=== PATIENT | female | born 1995 | race Caucasian/White ===

== ENCOUNTER 2018-03-16 16:48 | Emergency (ER) | payer OTHER ==
[2018-03-16 17:42] LABS: Absolute Lymphocytes (CBC) 1.5 K/uL (0.7-4.9); Absolute Monocytes 0.8 K/uL (0.1-1.3); Absolute Neutrophil 8.6 K/uL (1.8-8.0); Basophils % 0.2 % (0-1.3); Eosinophils % 0.5 % (0-4.4); Hematocrit 34.4 % (36.0-45.0); Lymphocytes % 13.7 % (15.3-44.8); MCH 33.9 pg (27.0-35.0); MCV 95.9 fL (80-100); MPV 8.5 fL (7.6-11.3); RBC Red Blood Cell Count 3.59 M/uL (3.86-4.86)
[2018-03-16 17:46] LABS: Protime INR 1.03
[2018-03-16 18:00] LABS: ALT/SGPT 22 U/L (12-78); AST/SGOT 20 U/L (15-37); Alkaline Phosphatase 103 U/L (45-117); BUN Blood Urea Nitrogen 6 mg/dL (7-18); Bicarbonate 25 mmol/L (21-32); Bilirubin Total 0.3 mg/dL (0.2-1.0); Glucose Level 98 mg/dL (74-106); Potassium 3.6 mmol/L (3.5-5.1); Protein, Total 6.3 g/dL (6.4-8.2); Sodium Level 138 mmol/L (136-145)
--- NOTE | 2018-03-16 18:05 | EDPHYS ---
Physician Documentation [facility] Name: Temitope Dillon Age: 22 yrs Sex: Female : 1995 Arrival Date: 03/16/2018 Time: 16:50 Bed 23 Private MD: ED Physician Doug Sanchez HPI: 03/16 17:23 This 22 yrs old Female presents to ER via Ambulatory with complaints of kdr Numbness Of Face. 17:23 The patient's problem is reported as paresthesias, in right side of face. Onset: The kdr symptoms/episode began/occurred suddenly, at 15:00. Duration: This was a single incident, The episode is continuous. Context: the episode(s) was witnessed, by family, symptoms became apparent at 15:00. occurred at home, occurred while the patient was at rest. The symptoms are alleviated by nothing. The symptoms are aggravated by nothing. Associated signs and symptoms: The patient has no apparent associated signs or symptoms. Severity of symptoms: At their worst the symptoms were very mild in the emergency department the symptoms are unchanged. Patient's baseline: Neuro: alert and fully oriented, Motor: no deficits, Ambulation: walks without assistance, Speech: normal, The patient has a previous history of 32 weeks . The patient has not experienced similar symptoms in the past. 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 - Social history:: Smoking status: Patient/guardian denies using tobacco. - Ebola Screening: : No symptoms or risks identified at this time. ROS: 18:04 Constitutional: Negative for fever, chills, and weight loss, Eyes: Negative for injury, kdr pain, redness, and discharge, ENT: Negative for injury, pain, and discharge, Neck: Negative for injury, pain, and swelling, Cardiovascular: Negative for chest pain, palpitations, and edema, Respiratory: Negative for shortness of breath, cough, wheezing, and pleuritic chest pain, Abdomen/GI: Negative for abdominal pain, nausea, vomiting, diarrhea, and constipation, Back: Negative for injury and pain, : Negative for injury, bleeding, discharge, and swelling, MS/Extremity: Negative for injury and deformity, Skin: Negative for injury, rash, and discoloration, Psych: Negative for depression, anxiety, suicide ideation, homicidal ideation, and hallucinations, Allergy/Immunology: Negative for hives, rash, and allergies, Endocrine: Negative for neck swelling, polydipsia, polyuria, polyphagia, and marked weight changes, Hematologic/Lymphatic: Negative for swollen nodes, abnormal bleeding, and unusual bruising. 18:04 Neuro: Positive for numbness, tingling, of the right zygomatic area and right cheek. Exam: 18:04 Head/Face: Normocephalic, atraumatic. kdr 18:04 Neuro: Orientation: is normal, Mentation: is normal, Memory: is normal, Cranial nerves: normal except V5 - facial nerve with subjective numbness - no objective findings of asymmetric sensation, Cerebellar function: Motor: Sensation: pin prick testing is normal. Vital Signs: 17:03 BP 121 / 75; Pulse 81; Resp 16; Temp 97.3; Pulse Ox 98% on R/A; Weight 61.23 kg; Height la1 5 ft. 4 in. (162.56 cm); 18:30 BP 124 / 76; Pulse 80; Resp 16; Pulse Ox 99% on R/A; kr2 17:03 Body Mass Index 23.17 (61.23 kg, 162.56 cm) la1 NIH Stroke Scale Scores: 17:04 NIHSS Score: 0 la1 18:08 NIHSS Score: 0 kdr MDM: 18:04 Patient medically screened. kdr 18:04 Data reviewed: vital signs, nurses notes, lab test result(s). Counseling: I had a kdr detailed discussion with the patient and/or guardian regarding: the historical points, exam findings, and any diagnostic results supporting the discharge/admit diagnosis, lab results, the need to transfer to another facility, for higher level of care, [facility] does not immediately have the required specialist. 18:08 ED course: tPA not indicated due to stoke scale of 0. kdr 11 17:15 Order name: CBC with Diff la1 03/16 17:15 Order name: CMP la1 03/16 17:15 Order name: PT-INR la1 03/16 17:15 Order name: SL; Complete Time: 18:34 la1 Administered Medications: No medications were administered Point of Care Testing: Blood Glucose: 17:06 Blood Glucose: 109 mg/dL; la1 Ranges: Critical Glucose Levels:Adult <50 mg/dl or >400 mg/dl <40 mg/dl or >180 mg/dl Disposition: 03/16/18 18:04 Transfer ordered to [facility]. Diagnosis is Paresthesia of skin - Right lower face. - Reason for transfer: Higher level of care. - Accepting physician is Dr. Hernandez. - Condition is Fair. - Problem is new. - Symptoms are unchanged. NIH Stroke Scale - NIH Stroke Score Date: 03/16/2018 Time: 17:04 Total Score = 0 1a. Level of Consciousness (LOC) - 0(Alert) 1b. Level of Consciousness (LOC) (Year \T\ Age) - 0(Both) 1c. LOC Commands (Open \T\ Closes Eyes/Measurer Machine) - 0(Both) 2. Best Gaze (Lateral Gaze Paresis) - 0(Normal) 3. Visual Field Loss - 0(No visual loss) 4. Facial Palsy - 0(Normal) 5a. Left Arm: Motor (10-second hold) - 0(No drift) 5b. Right Arm: Motor (10-second hold) - 0(No drift) 6a. Left Leg: Motor (5-second hold - always test supine) - 0(No drift) 6b. Right Leg: Motor (5-second hold - always test supine) - 0(No drift) 7. Limb Ataxia (finger/nose \T\ heel/ball - test with eyes open) - 0(Absent) 8. Sensory Loss (pinprick arms/legs/face) - 0(Normal) 9. Best Language: Aphasia (description/naming/reading) - 0(No aphasia) 10. Dysarthria (speech clarity - read or repeat words) - 0(Normal) 11. Extinction and Inattention (visual/tactile/auditory/spatial/personal) - 0(No abnormality) Initials: la1 NIH Stroke Scale - NIH Stroke Score Date: 03/16/2018 Time: 18:08 Total Score = 0 1a. Level of Consciousness (LOC) - 0(Alert) 1b. Level of Consciousness (LOC) (Year \T\ Age) - 0(Both) 1c. LOC Commands (Open \T\ Closes Eyes/Measurer Machine) - 0(Both) 2. Best Gaze (Lateral Gaze Paresis) - 0(Normal) 3. Visual Field Loss - 0(No visual loss) 4. Facial Palsy - 0(Normal) 5a. Left Arm: Motor (10-second hold) - 0(No drift) 5b. Right Arm: Motor (10-second hold) - 0(No drift) 6a. Left Leg: Motor (5-second hold - always test supine) - 0(No drift) 6b. Right Leg: Motor (5-second hold - always test supine) - 0(No drift) 7. Limb Ataxia (finger/nose \T\ heel/ball - test with eyes open) - 0(Absent) 8. Sensory Loss (pinprick arms/legs/face) - 0(Normal) 9. Best Language: Aphasia (description/naming/reading) - 0(No aphasia) 10. Dysarthria (speech clarity - read or repeat words) - 0(Normal) 11. Extinction and Inattention (visual/tactile/auditory/spatial/personal) - 0(No abnormality) Initials: kdr Signatures: Dispatcher [employer] EDMS Doug Sanchez MD MD kdr Donn Au RN RN la1 Ivette Lopez RN RN kr2 Corrections: (The following items were deleted from the chart) 18:45 18:04 03/16/2018 18:04 Transfer ordered to [address] Diagnosis is Paresthesia of skin - Right lower face. Reason for transfer: Higher level of care. Accepting physician is Dr. Hernandez. Condition is Fair. Problem is new. Symptoms are unchanged. kdr
--- NOTE | 2018-03-16 18:05 | ER ---
Nurse's Notes [facility] Name: Temitope Dillon Age: 22 yrs Sex: Female : 1995 Arrival Date: 03/16/2018 Time: 16:50 Bed 23 Private MD: Diagnosis: Paresthesia of skin-Right lower face Presentation: 03/16 17:03 Presenting complaint: Patient states: right sided facial numbness without any other la1 neurological deficits. Transition of care: patient was not received from another setting of care. Onset of symptoms was March 16, 2018. Risk Assessment: Do you want to hurt yourself or someone else? Patient reports no desire to harm self or others. Initial Sepsis Screen: Does the patient meet any 2 criteria? No. Patient's initial sepsis screen is negative. Does the patient have a suspected source of infection? No. Patient's initial sepsis screen is negative. Care prior to arrival: None. 17:03 Method Of Arrival: Ambulatory la1 17:03 Acuity: ARCENIO 2 la1 Triage Assessment: 17:10 General: Appears in no apparent distress. comfortable, well groomed, well developed, kr2 well nourished, Behavior is calm, cooperative, appropriate for age. 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 - Social history:: Smoking status: Patient/guardian denies using tobacco. - Ebola Screening: : No symptoms or risks identified at this time. Screenin:04 Patient has been NPO before screening. The patient is alert, able to follow commands. la1 The patient does not exhibit slurred or garbled speech The patient is not exhibiting difficulty speaking. The patient does not exhibit difficulty understanding words. The patient is able to swallow own secretions with no drooling or need for suction. Patient tolerated one teaspoon of water. No drooling, immediate coughing, gurgling, or clearing of the throat was noted. The patient tolerated 90mL of water. No drooling, immediate coughing, gurgling, or clearing of the throat was noted. The patient passed the bedside swallow screening. Oral medications may be given as ordered. Contact Physician for further diet orders. Provider notified of bedside swallow screening results: Doug Sanchez MD. 17:10 Abuse screen: Denies threats or abuse. Denies injuries from another. Nutritional kr2 screening: No deficits noted. Tuberculosis screening: No symptoms or risk factors identified. Fall Risk None identified. Assessment: 17:05 Reassessment: CT head delayed due to consult with neurology regarding . la1 17:15 General: Appears in no apparent distress. comfortable, well groomed, well developed, kr2 well nourished, Behavior is calm, cooperative, appropriate for age. Pain: Denies pain. Neuro: Level of Consciousness is awake, alert, obeys commands, Oriented to person, place, time, situation, Appropriate for age Boiler Shop Supervisor are equal bilaterally Moves all extremities. Gait is steady, Speech is normal, Facial symmetry appears normal, Pupils are PERRLA, Patient reports numbness to right side of face. Cardiovascular: Capillary refill < 3 seconds in bilateral fingers Patient's skin is warm and dry. Respiratory: Airway is patent Respiratory effort is even, unlabored, Respiratory pattern is regular, symmetrical. GI: Abdomen is flat, non-distended. : Denies burning with urination. EENT: Nares are clear bilaterally Oral mucosa is moist. Derm: Skin is intact, is healthy with good turgor, Skin is pink, warm \T\ dry. Musculoskeletal: Circulation, motion, and sensation intact. 18:30 Reassessment: Patient appears in no apparent distress at this time. Patient and/or kr2 family updated on plan of care and expected duration. Pain level reassessed. Patient is alert, oriented x 3, equal unlabored respirations, skin warm/dry/pink. Patient denies pain at this time. Vital Signs: 17:03 BP 121 / 75; Pulse 81; Resp 16; Temp 97.3; Pulse Ox 98% on R/A; Weight 61.23 kg; Height la1 5 ft. 4 in. (162.56 cm); 18:30 BP 124 / 76; Pulse 80; Resp 16; Pulse Ox 99% on R/A; kr2 17:03 Body Mass Index 23.17 (61.23 kg, 162.56 cm) la1 NIH Stroke Scale Scores: 17:04 NIHSS Score: 0 la1 18:08 NIHSS Score: 0 kdr ED Course: 16:50 Patient arrived in ED. as 17:03 Triage completed. la1 17:03 Arm band placed on right wrist. la1 17:05 Patient has correct armband on for positive identification. Bed in low position. Call kr2 light in reach. Side rails up X 1. Adult w/ patient. Pulse ox on. NIBP on. Door closed. Warm blanket given. Head of bed elevated. 17:08 Doug Sanchez MD is Attending Physician. kdr 17:20 Initial lab(s) drawn, by me, sent to lab. jp3 17:45 PT-INR Sent. jp3 17:45 CMP Sent. jp3 18:30 Inserted saline lock: 22 gauge in left antecubital area, using aseptic technique. jp3 18:40 No provider procedures requiring assistance completed. Patient transferred, IV remains kr2 in place. 18:45 Ivette Lopez, RN is Primary Nurse. kr2 Administered Medications: No medications were administered Point of Care Testing: Blood Glucose: 17:06 Blood Glucose: 109 mg/dL; la1 Ranges: Outcome: 18:04 ER care complete, transfer ordered by . kdr 18:40 Transferred by ground EMS Transfer form completed. kr2 18:40 Condition: stable 18:40 Instructed on the need for transfer, Demonstrated understanding of instructions. 18:45 Patient left the ED. kr2 NIH Stroke Scale - NIH Stroke Score Date: 03/16/2018 Time: 17:04 Total Score = 0 1a. Level of Consciousness (LOC) - 0(Alert) 1b. Level of Consciousness (LOC) (Year \T\ Age) - 0(Both) 1c. LOC Commands (Open \T\ Closes Eyes/Waste Water Worker) - 0(Both) 2. Best Gaze (Lateral Gaze Paresis) - 0(Normal) 3. Visual Field Loss - 0(No visual loss) 4. Facial Palsy - 0(Normal) 5a. Left Arm: Motor (10-second hold) - 0(No drift) 5b. Right Arm: Motor (10-second hold) - 0(No drift) 6a. Left Leg: Motor (5-second hold - always test supine) - 0(No drift) 6b. Right Leg: Motor (5-second hold - always test supine) - 0(No drift) 7. Limb Ataxia (finger/nose \T\ heel/ball - test with eyes open) - 0(Absent) 8. Sensory Loss (pinprick arms/legs/face) - 0(Normal) 9. Best Language: Aphasia (description/naming/reading) - 0(No aphasia) 10. Dysarthria (speech clarity - read or repeat words) - 0(Normal) 11. Extinction and Inattention (visual/tactile/auditory/spatial/personal) - 0(No abnormality) Initials: la1 NIH Stroke Scale - NIH Stroke Score Date: 03/16/2018 Time: 18:08 Total Score = 0 1a. Level of Consciousness (LOC) - 0(Alert) 1b. Level of Consciousness (LOC) (Year \T\ Age) - 0(Both) 1c. LOC Commands (Open \T\ Closes Eyes/Waste Water Worker) - 0(Both) 2. Best Gaze (Lateral Gaze Paresis) - 0(Normal) 3. Visual Field Loss - 0(No visual loss) 4. Facial Palsy - 0(Normal) 5a. Left Arm: Motor (10-second hold) - 0(No drift) 5b. Right Arm: Motor (10-second hold) - 0(No drift) 6a. Left Leg: Motor (5-second hold - always test supine) - 0(No drift) 6b. Right Leg: Motor (5-second hold - always test supine) - 0(No drift) 7. Limb Ataxia (finger/nose \T\ heel/ball - test with eyes open) - 0(Absent) 8. Sensory Loss (pinprick arms/legs/face) - 0(Normal) 9. Best Language: Aphasia (description/naming/reading) - 0(No aphasia) 10. Dysarthria (speech clarity - read or repeat words) - 0(Normal) 11. Extinction and Inattention (visual/tactile/auditory/spatial/personal) - 0(No abnormality) Initials: kdr Signatures: Doug Sanchez MD MD kdr Harper Warner Lee, RN RN la1 Ivette Lopez RN RN kr2 Blair Ferrara jp3 Corrections: (The following items were deleted from the chart) 03/17 00:41 03/16 17:15 Neuro: Level of Consciousness is awake, alert, obeys commands, kr2 Oriented to person, place, time, situation, Appropriate for age Boiler Shop Supervisor are equal bilaterally Moves all extremities. Gait is steady, Speech is normal, Facial symmetry appears normal, Pupils are PERRLA, Patient reports numbness to left side of face. kr2
== END 2018-03-16 18:45 | disposition short-term general hospital (02) ==
LOC: ER 16:48
DX: R20.2 Paresthesia of skin (principal); Z3A.32 32 weeks gestation of pregnancy
CPT/HCPCS: 36415; 80053; 82962; 85025; 85610; 99285

== ENCOUNTER 2018-04-26 06:21 | Inpatient (IN) | payer OTHER ==
--- NOTE | 2018-04-25 21:35 | PREOPHP ---
Date of Admission: 04/26/2018 History Of Present Illness: Ms. Dillon is a 22-year-old female, 1, para 0 , now at 38 weeks' gestation. She has been followed by me during this without significant complications other than Rh negative blood type. She presents today with 2+ lower extremity edema wi th blood pressures in 136/90+ range. Because of this, she will be admitted for induction of labor se condary to a near term , favorable cervix, with mild -induced hypertension. I feel she has nothing to be gained by continued observation at this point in . Past Medical History: Please see record. Family History: Please see record. Review of Systems: She reports no recent cough, colds, fever, or chills. No recent vomiting. She denies any breast lum ps or knots. Baby has been active. She denies any vaginal bleeding or spotting or urine symptoms. She has had headaches. She has had some nausea. Physical Examination: General: Reveals pleasant female, in no apparent distress. Neck: Supple without adenopathy or thyromegaly. Lungs: Clear. Cardiac: Regular rate and rhythm without murmurs. Breasts: Not examined. Abdomen: Estimated weight of 6+ pounds. Pelvic: Cervix 1 cm dilated, 50% effaced, mid position, vertex, and -2 station. Extremities: 2+ lower extremity edema with normal reflexes in the lower extremity. Impression: Thirty-eight week ; -induced hypertension, mild, with edema and hypert ension. Plan: The patient will be admitted for induction of labor. She has signed operative permit in my pr henrik. YFN/MODL Voice ID: [id number]
[~2018-04-26 06:21] MED LIST: BUTORPHANOL 1 MG/ML INJ IV PRN; CARBOPROST TROME 250 MCG/ML IM PRN; METHYLERGONOVINE 0.2MG/ML AMP IM PRN; PROMETHAZINE 25 MG/ML VIAL IV PRN; Ringers Lactate 1,000 ML IV PRN
[2018-04-26 06:48] LABS: RPR Titer ND
[2018-04-26 06:51] LABS: Urine Appearance CLOUDY; Urine Bilirubin NEGATIVE (NEG); Urine Blood NEGATIVE (NEG); Urine Color YELLOW; Urine Glucose NEGATIVE (NEG); Urine Protein TRACE (NEG); Urine Specific Gravity 1.015 (1.005-1.030); Urine Urobilinogen 0.2 mg/dL (0.2-1.0)
[2018-04-26 06:54] LABS: Absolute Monocytes 0.6 K/uL (0.1-1.3); Absolute Neutrophil 7.1 K/uL (1.8-8.0); Basophils % 0.3 % (0-1.3); Eosinophils % 0.5 % (0-4.4); Hematocrit 37.6 % (36.0-45.0); Lymphocytes % 20.1 % (15.3-44.8); MCH 34.4 pg (27.0-35.0); MCV 96.6 fL (80-100); MPV 10.2 fL (7.6-11.3); Monocytes % 6.2 % (3.3-12.3); RBC Red Blood Cell Count 3.89 M/uL (3.86-4.86)
[2018-04-26 06:56] LABS: Urine Microscopic Reflex ORDER UMIC
[2018-04-26] MEDS ORDERED: OXYTOCIN/LR 20 UNIT/1,000 ML BAG IV SCH (07:00)
[2018-04-26] MEDS ORDERED: Ringers Lactate 1,000 ML IV SCH (07:00)
[2018-04-26 07:03] LABS: Urine Bacteria <20 /HPF (<20); Urine RBC <5 /HPF (NONE SEEN)
[2018-04-26 07:04] LABS: Urine Culture Reflex Order NOT NEEDED
[2018-04-26 07:10] VITALS: BMI 26.4
--- NOTE | 2018-04-26 07:24 | P.PN ---
Date of Service: 04/26/18 FSE applied, cx 1-1+cm, 50% mid, vtx, minus 1-minus2 station. Plans discussed.
[2018-04-26] MEDS ORDERED: ROPIVACAINE HCL 100 ML IV PRN (11:16)
[2018-04-26] MEDS ORDERED: ROPIVACAINE HCL 0.2% 20ML AMP IV ONE (11:18)
[2018-04-26] MEDS ORDERED: FENTANYL CITR 100 MCG/2 ML ONE ×4 (12:13→21:22)
[2018-04-26] MEDS ORDERED: BUPIVACAINE 0.25% PF 30 ML VIAL ONE ×2 (12:13→17:40)
[2018-04-26] MEDS ORDERED: NA CIT/CITRIC AC 30 ML ORAL UDC PO ONE ×2 (19:15→20:26)
[2018-04-26] MEDS ORDERED: NA CIT/CITRIC AC 30 ML ORAL UDC ONE (19:26)
[2018-04-26] MEDS ORDERED: METOCLOPRAMIDE 10 MG/2mL INJ IV SCH (21:00)
[2018-04-26] MEDS ORDERED: CARBOPROST TROME 250 MCG/ML IM ONE (21:14)
[2018-04-26] MEDS ORDERED: ROPIVACAINE HCL 100 ML IV ONE (21:37)
[2018-04-26] MEDS ORDERED: ONDANSETRON 4 MG (ODT) TAB PO PRN (23:25)
[2018-04-26] MEDS ORDERED: Oxycodone HCl/Acetaminophen 1 TAB TAB PO PRN (23:25)
[2018-04-26] MEDS ORDERED: Rho(D) IG (HUMAN) 300 MCG SYR IM PRN (23:25)
[2018-04-26] MEDS ORDERED: CARBOPROST TROME 250 MCG/ML IM PRN (23:25)
--- NOTE | 2018-04-26 23:27 | P.BOP ---
Preoperative diagnosis: 38 wk iUP, PIH Postoperative diagnosis: Same, delivery viable male Primary procedure: Low outlet forceps, right midline with repair Estimated blood loss: 300ml Anesthesia: epidural Complications: None Transferred to: Other (273) Condition: Good
[2018-04-26] MEDS: IBUPROFEN 200 MG TAB PO PRN (23:44)
[2018-04-26] MEDS ORDERED: OXYTOCIN/LR 20 UNITS/1,000 ML BAG IV SCH (23:45)
[2018-04-26 23:53] LABS: RPR (Rapid Plasma Reagin) NON-REACT (NON-REACT)
[2018-04-27 06:32] LABS: Absolute Lymphocytes (CBC) 1.4 K/uL (0.7-4.9); Absolute Monocytes 1.4 K/uL (0.1-1.3); Absolute Neutrophil 22.8 K/uL (1.8-8.0); Basophils % 0.1 % (0-1.3); Lymphocytes % 5.6 % (15.3-44.8); MCH 33.8 pg (27.0-35.0); MCV 96.9 fL (80-100); MPV 10.4 fL (7.6-11.3); Monocytes % 5.5 % (3.3-12.3)
[2018-04-27] MEDS ORDERED: CEFAZOLIN 2GM (PREMIX IV) 2 GM/50 ML BAG ONE (07:17)
--- NOTE | 2018-04-27 07:29 | P.PN ---
S-No complaints except little sleep last night O-Afeb, but 25K wbc's. abdomen non tender A-Post endometritus P-Patient remained afebrile but infant was tachycardic near end. Will give one dose of Ancef and start po Keflex in 8 hours to decrease risk of endometritus
[2018-04-27] MEDS ORDERED: CEFAZOLIN/SWI 2gm 2 GM/20 ML SYR IVP ONE (07:30)
[2018-04-27 09:09] LABS: Blood Morphology Comment NOT SEEN (NOT SEEN); Platelet Estimate ADEQ
[2018-04-27] MEDS ORDERED: CEPHALEXIN 250 MG CAP PO SCH ×2 (12:00→14:00)
--- NOTE | 2018-04-27 17:16 | OP ---
Surgeon: Pepito Dyson MD Ms. Dillon is a 22-year-old female, 1, para 0, at 38 weeks gestation, admi tted for induction of labor secondary to a rising blood pressure and edema. She was noted to be 1+ c m on admission. Rupture of membranes was performed by placing a scalp electrode. She had a fi rst stage of labor of 15 hours and 53 minutes, second stage of labor of 1 hour and 8 minutes. She de livered by low outlet forceps a 5-pound 13-ounce male infant, 8 and 9. After cord clamping inf ant placed on mother's upper abdomen. Cord blood was obtained. Placenta was spontaneously expelled. Intrauterine examination revealed no retained placental fragments. She was delivered by low outlet forceps secondary to tachycardia and variable decelerations over a right midline episiotomy. This was repaired in the usual fashion with 3-0 Vicryl suture. The patient delivered with epidural a nesthesia and received excellent benefit from this, although the catheter had to be replaced 1 time b ecause of the loss of effectiveness. Estimated total blood loss was less than 300 cc. YFN/COREY Voice ID: [id number] Report ID: [id number]
[2018-04-27] MEDS: CEPHALEXIN 500 MG CAP PO SCH (19:40)
[2018-04-27] MEDS: IBUPROFEN 200 MG TAB PO PRN (19:45)
[2018-04-27] MEDS ORDERED: FAMOTIDINE 20 MG/2 ML VIAL IV ONE (20:27)
[2018-04-28] MEDS: CEPHALEXIN 500 MG CAP PO SCH ×2 (00:45→05:48)
[2018-04-28 06:59] LABS: Absolute Lymphocytes (CBC) 2.1 K/uL (0.7-4.9); Absolute Monocytes 0.6 K/uL (0.1-1.3); Absolute Neutrophil 9.5 K/uL (1.8-8.0); Basophils % 0.3 % (0-1.3); Eosinophils % 0.9 % (0-4.4); MCH 33.7 pg (27.0-35.0); MCV 97.3 fL (80-100); Monocytes % 4.5 % (3.3-12.3); RBC Red Blood Cell Count 3.29 M/uL (3.86-4.86)
[2018-04-28 08:48] VITALS: BP 142/82; TEMP 97.5
--- NOTE | 2018-04-29 06:59 | DS ---
Date of Discharge: 04/28/2018 Final Hospital Discharge Diagnoses: A 38 week , delivered; -induced hypertension; endometritis. Procedures: Artificial rupture of membranes, Pitocin induction of labor, placement of epidural prisca ter, low outlet forceps, delivery of a viable male . Hospital Course: The patient is a 22-year-old female, 1, para 0, at 38 wee ks gestation, admitted for rising blood pressure and edema with suspected -induced hypertens ion. She delivered a 5 pounds 13 ounce male infant by low outlet forceps. Her course was complicated by a first CBC showing a white blood cell count of 25,000. This was because of tachycardia during the later portion of labor. This was thought to represent a possible amn ionitis endometritis. Because of this, she was given 2 g of Ancef and started on p.o. Keflex. She r emained afebrile during her hospital course with temperature maximum of approximately 99.6 degrees. Following day, her white blood cell count had dropped to 12,300, hemoglobin and hematocrit initially was 13.4 and 37.6, dismissal 11.1 and 32.0. She has Rh negative blood type, was given 1 u nit, also was given RhoGAM because was Rh positive blood type. She was dismissed with 3 addit ional days of Keflex 500 mg p.o. q.6 hours #12 prescription for Tylenol No. 3, to be seen back in my office in 1 week for blood pressure check and to follow up on the endometritis. YFN/COREY Voice ID: [id number] Report ID: [id number]
[2018-04-30 04:29] LABS: HBsAG Nonreactive (Nonreactive)
== END 2018-04-28 10:20 | disposition home or self-care (01) | DRG 806 ==
LOC: 2ND-WC 06:21
PROVIDERS: ADMIT Specialist; ATTEND Specialist
PROC: 10D07Z3 Extraction of Products of Conception, Low Forceps, Via Natural or Artificial Opening (ICD-10-PCS; principal; 2018-04-26)
PROC: 3E033VJ Introduction of Other Hormone into Peripheral Vein, Percutaneous Approach (ICD-10-PCS; 2018-04-26)
PROC: 10907ZC Drainage of Amniotic Fluid, Therapeutic from Products of Conception, Via Natural or Artificial Opening (ICD-10-PCS; 2018-04-26)
PROC: 0W8NXZZ Division of Female Perineum, External Approach (ICD-10-PCS; 2018-04-26)
PROC: 3E0234Z Introduction of Serum, Toxoid and Vaccine into Muscle, Percutaneous Approach (ICD-10-PCS; 2018-04-28)
DX: O13.4 Gestational [pregnancy-induced] hypertension without significant proteinuria, complicating childbirth (principal); O36.0930 Maternal care for other rhesus isoimmunization, third trimester, not applicable or unspecified; Z37.0 Single live birth; O76 Abnormality in fetal heart rate and rhythm complicating labor and delivery; O66.5 Attempted application of vacuum extractor and forceps; Z3A.38 38 weeks gestation of pregnancy; O86.12 Endometritis following delivery
CPT/HCPCS: 36415; 81003; 81015; 85025; 85461; 86592; 86850; 86870; 86900; 86901; 87340; J0690; J2550; J2590; J2790; J2795; J3010